=== PATIENT | female | born 1975 | race Two or more races ===

== ENCOUNTER 2020-11-11 09:00 | Outpatient (CLI) | payer OTHER | END 2020-11-11 23:59 | disposition home or self-care (01) | LOC: LAB 09:00 | PROVIDERS: ATTEND Specialist | DX: Z01.812 Encounter for preprocedural laboratory examination (principal); Z20.822 Contact with and (suspected) exposure to COVID-19 | CPT/HCPCS: C9803; U0003 ==

== ENCOUNTER 2020-11-14 05:31 | Day surgery (SDC) | payer OTHER ==
[2020-11-14] MEDS ORDERED: BUPIVACAINE 0.5 % PF 150 MG/30 ML VIAL ONE (05:40)
[2020-11-14] MEDS ORDERED: ANESTHESIA TRAY IN PYXIS 1 EA TRAY MC ONE (05:41)
[2020-11-14] MEDS ORDERED: EPINEPHRINE (1:1000) 1 MG/ML AMPUL ONE (05:41)
[2020-11-14] MEDS ORDERED: FENTANYL PF 100MCG/2ML AMPUL ONE (06:34)
[2020-11-14] MEDS ORDERED: MIDAZOLAM HCL 2 MG/2ML VIAL ONE (06:35)
[2020-11-14] MEDS ORDERED: ROCURONIUM BROMIDE 50 MG/5 ML ONE (06:35)
== END 2020-11-14 10:05 | disposition home or self-care (01) ==
LOC: DS 05:31
PROVIDERS: ATTEND Specialist
DX: M75.41 Impingement syndrome of right shoulder (principal); M65.811 Other synovitis and tenosynovitis, right shoulder; E66.01 Morbid (severe) obesity due to excess calories; J45.909 Unspecified asthma, uncomplicated; K21.9 Gastro-esophageal reflux disease without esophagitis; Z79.899 Other long term (current) drug therapy
CPT/HCPCS: 29824; 29828; 84703; A4217; A4565; J0171; J0330; J0690; J2250; J2370; J2704; J3010; J3490; J7070